=== PATIENT | male | born 1990 | race Two or more races ===

== ENCOUNTER 2022-06-25 11:14 | Emergency (ER) | payer OTHER ==
[~2022-06-25] VITALS: Ht 175.3 cm; Wt 127.0 kg
[2022-06-25 11:17] VITALS: BP 146/78
--- NOTE | 2022-06-25 11:21 | NUR ---
PT AMBULATED TO ER BED 7
[2022-06-25] MEDS ORDERED: IBUPROFEN 800 MG TAB PO ONE (12:20)
[2022-06-25] MEDS ORDERED: LIDOCAINE 2% 1000 MG/50 ML VIAL INJ ONE (13:00)
--- NOTE | 2022-06-25 13:56 | NUR ---
CALLED [facility] [employer] TO VERIFY REPORT WAS MADE. SPOKE WITH DALTON. CASE # [id number]
[2022-06-25] MEDS ORDERED: LIDO100S PO (14:20)
[2022-06-25] MEDS ORDERED: NAPR-1704 PO (14:20)
[2022-06-25] MEDS ORDERED: IBUP-2213 PO (14:20)
== END 2022-06-25 14:40 | disposition home or self-care (01) ==
LOC: MED 11:14
DX: S01.511A Laceration without foreign body of lip, initial encounter (principal); Y04.8XXA Assault by other bodily force, initial encounter; Y93.89 Activity, other specified; Y92.89 Other specified places as the place of occurrence of the external cause; Y99.8 Other external cause status
CPT/HCPCS: 12011; 90471; 90715; 99283; J2001